=== PATIENT | male | born 1990 | race Caucasian/White ===

== ENCOUNTER 2022-07-09 20:48 | Emergency (ER) | payer SELFPAY ==
[2022-07-09] MEDS ORDERED: Penicillin V Potassium 500 MG Tab PO STA (21:09)
[2022-07-09] MEDS ORDERED: Lidocaine 2% Viscous Solution 15 ML UD PO ONE (21:09)
[2022-07-09] MEDS ORDERED: Benzocaine 20% Topical Spray UD MUCMEM ONE (21:09)
[2022-07-09] MEDS ORDERED: Acetaminophen/HYDROcodone 325-5 MG Tab PO ONE (21:09)
== END 2022-07-10 00:49 | disposition home or self-care (01) ==
LOC: MW.ED 20:48
DX: K04.7 Periapical abscess without sinus (principal)
CPT/HCPCS: 41800; 99282; A9270; 10060; 99283

== ENCOUNTER 2022-07-14 20:05 | Emergency (ER) | payer SELFPAY ==
[2022-07-14] MEDS ORDERED: Acetaminophen/HYDROcodone 325-5 MG Tab PO ONE (20:42)
[2022-07-14] MEDS ORDERED: Benzocaine 20% Topical Spray UD MUCMEM ONE (20:43)
[2022-07-14] MEDS ORDERED: Lidocaine 2% Viscous Solution 15 ML UD PO ONE (20:43)
== END 2022-07-14 20:54 | disposition home or self-care (01) ==
LOC: MW.ED 20:05
DX: Z76.0 Encounter for issue of repeat prescription (principal); Z79.899 Other long term (current) drug therapy
CPT/HCPCS: 99282; A9270; 99283